=== PATIENT | female | born 1955 | race Caucasian/White ===

== ENCOUNTER 2018-12-22 18:19 | Emergency (ER) | payer OTHER ==
[2018-12-22 20:32] VITALS: BP 167/82
[2018-12-22] MEDS ORDERED: Ondansetron ODT TAB* 4 MG PO ONE (20:52)
--- NOTE | 2018-12-22 20:53 | UC ---
UC General HPI - HPI Summary HPI Summary: 2 days hx scratchy throat, bodyaches, chills and cough with congestion. n/v/d today as well. ? fever. no asthma or copd. - History of Current Complaint Chief Complaint: UCGeneralIllness Stated Complaint: BAUGH,CONGESTION,BODY ACHES,NAUSEA Time Seen by Provider: 12/22/18 20:41 Hx Obtained From: Patient Hx Last Menstrual Period: 05/2013 Onset/Duration: Sudden Onset Timing: Constant Pain Intensity: 5 Associated Signs & Symptoms: Negative: Abdominal Pain, Chest Pain, SOB - Allergy/Home Medications Allergies/Adverse Reactions: Allergies Allergy/AdvReac Type Severity Reaction Status Date / Time No Known Allergies Allergy Verified 04/21/13 08:39 Home Medications: Home Medications NK [No Home Medications Reported] 12/22/18 [History Confirmed 12/22/18] PMH/Surg Hx/FS Hx/Imm Hx Previously Healthy: Yes - Surgical History Surgical History: Yes Surgery Procedure, Year, and Place: benign growth removed from neck - Family History Known Family History: Positive: Non-Contributory - Social History Occupation: Employed Full-time Alcohol Use: None Substance Use Type: None Smoking Status (MU): Never Smoked Tobacco Review of Systems All Other Systems Reviewed And Are Negative: Yes Constitutional: Positive: Chills Skin: Positive: Negative Eyes: Positive: Negative ENT: Positive: Sore Throat, Sinus Congestion Respiratory: Positive: Cough Cardiovascular: Positive: Negative Gastrointestinal: Positive: Vomiting, Nausea. Negative: Abdominal Pain Genitourinary: Positive: Negative Motor: Positive: Negative Neurovascular: Positive: Negative Musculoskeletal: Positive: Myalgia Neurological: Positive: Negative Psychological: Positive: Negative Physical Exam Triage Information Reviewed: Yes Appearance: Ill-Appearing - but non toxic Vital Signs: Initial Vital Signs Temp 99.6 F 12/22/18 19:44 Pulse 106 12/22/18 19:44 Resp 16 12/22/18 19:44 BP 167/82 12/22/18 19:44 Pulse Ox 99 12/22/18 19:44 Vital Signs Reviewed: Yes Eyes: Positive: Conjunctiva Clear ENT: Positive: Pharynx normal, Nasal congestion, TMs normal. Negative: Nasal drainage, Sinus tenderness Neck: Positive: Supple, Nontender, No Lymphadenopathy Respiratory: Positive: Lungs clear, Normal breath sounds, No respiratory distress Cardiovascular: Positive: No Murmur, Tachycardia - 100 Abdomen Description: Positive: Nontender, No Organomegaly, Soft Bowel Sounds: Positive: Present Musculoskeletal: Positive: ROM Intact Neurological: Positive: Alert Psychological: Positive: Age Appropriate Behavior Skin Exam: Normal Diagnostics - Laboratory Diagnostic Studies Completed/Ordered: yolanda unable to collect flu swab due to contamination Course/Dx - Course Course Of Treatment: s/s's c/w influenza. tamiflu risk/benefits d/w pt. pt declined the medication. BP elevated here. No hx htn. Pt attrinutes current BP to stress and illness. will have a recheck on f/u visit. - Diagnoses Provider Diagnosis: Influenza-like symptoms Discharge - Sign-Out/Discharge Documenting (check all that apply): Patient Departure All imaging exams completed and their final reports reviewed: No Studies - Discharge Plan Condition: Stable Disposition: HOME Patient Education Materials: Influenza (DC) Forms: *Work Release Referrals: Jurgen Green MD [Primary Care Provider] - 7 Days - Billing Disposition and Condition Condition: STABLE Disposition: Home - Attestation Statements Provider Attestation: Per institutional requirements, I have reviewed the chart, however, I was not consulted specifically or made aware of this patient by the midlevel provider. I did not personally evaluate, interact with , or disposition this patient.
== END 2018-12-22 21:00 | disposition home or self-care (01) ==
LOC: UCCORT 18:19
DX: J11.1 Influenza due to unidentified influenza virus with other respiratory manifestations (principal); R03.0 Elevated blood-pressure reading, without diagnosis of hypertension
CPT/HCPCS: 99202; A9270-GY; G0463